=== PATIENT | male | born 1945 | race Caucasian/White ===

== ENCOUNTER 2023-12-08 09:54 | Outpatient (OUT) | payer MEDICARE, BC, SELFPAY ==
[2023-12-08 10:17] LABS: Hematocrit 40.5 % (42.0-54.0); Hemoglobin 13.6 g/dL (14.0-18.0); Mean Corpuscular HGB Conc 33.6 g/dL (29.9-35.2); Mean Corpuscular Hemoglobin 32.4 pg (25.9-34.0); Mean Corpuscular Volume 96.4 fL (80.0-94.0); Mean Platelet Volume 10.1 fL (9.5-13.5); Platelet Count 231 10^3/uL (150-450); Red Cell Distribution Width 13.2 % (11.0-15.0); White Blood Count 6.5 10^3/uL (4.0-11.0)
[2023-12-08 10:30] LABS: Estimated Average Glucose 97 mg/dL
[2023-12-08 11:14] LABS: Alanine Aminotransferase 21 U/L (16-63); Albumin Globulin Ratio 1.1; Albumin Level 3.8 g/dL (3.4-5.0); Alkaline Phosphatase 56 U/L (46-116); Anion Gap 12.4; Aspartate Amino Transferase 17 U/L (15-37); BUN Creatinine Ratio 21.5; Bilirubin Total 1.7 mg/dL (0.2-1.0); Carbon Dioxide 29.2 mmol/L (21.0-32.0); Chloride 105 mmol/L (98-107); Chol HDL Ratio 4.8; Cholesterol 206 mg/dL (<=200); Estimated GFR (African America >60 (>=60); Estimated GFR (Non-African Ame >60 (>=60); Globulin 3.4 g/dL; Glucose 90 mg/dL (74-106); HDL Cholesterol 43 mg/dL (40-60); Potassium 3.6 mmol/L (3.5-5.1); Sodium 143 mmol/L (136-145); Total Protein 7.2 g/dL (6.4-8.2); Triglycerides 252 mg/dL (<=150); VLDL CHOLESTEROL 50.4 mg/dL
[2023-12-08 11:37] LABS: Prostate Specific Antigen Scrn 2.98 ng/mL (<=4.00)
== END 2023-12-08 09:55 | disposition home or self-care (01) ==
LOC: LAB 09:59
PROVIDERS: PCP Nurse Practitioner Primary Care; Visit Provider Nurse Practitioner Primary Care
DX: Z00.00 Encounter for general adult medical examination without abnormal findings (principal); Z13.6 Encounter for screening for cardiovascular disorders
CPT/HCPCS: 36415; 80053; 80061; 83036; 85027; G0103

== ENCOUNTER 2023-12-19 09:50 | Outpatient (OUT) | payer MEDICARE, BC, SELFPAY ==
--- NOTE | 2023-12-19 | US_ITS ---
The [address] [address] Patient Name: CRONELIUS MUNSON MRN: [id number] date: 1945 Sex: M Assigned Patient Location: US Current Patient Location: Accession/Order Number: [id number] Exam Date: 12/19/2023 10:00 Report Date: 12/20/2023 08:05 At the request of: EMERSON PINTO Procedure: US right upper quadrant EXAM: US right upper quadrant HISTORY: E80.6 HYPERBILIRUBIN COMPARISON: None. TECHNIQUE: Sonographic examination of the right upper quadrant of the abdomen using grayscale, and color Doppler. FINDINGS: Normal contour and increased echotexture of the liver. Lobular simple appearing left hepatic lobe cyst, 2.6 cm. Bilobed cystic right hepatic lobe focus measuring up to 3.9 cm, most likely 2 adjacent simple cysts. No associated color flow. No discrete solid hepatic mass. No intrahepatic biliary ductal dilatation. Common bile duct within normal limits. Normal gallbladder wall thickness. No cholelithiasis. Probable gallbladder polyp measuring 6 mm with narrow stalk. No internal color flow.. Negative sonographic Murcia sign. No pericholecystic fluid. Pancreas is not visualized given bowel gas. Normal echogenicity of the right kidney, which measures 11.7 cm in length. No hydronephrosis. Simple right upper pole 1.8 cm cyst. No free fluid. Normal visualized aortic diameter(s). SUMMARY: 1. Hepatic steatosis. 2. No evidence for biliary obstruction. 3. Small gallbladder polyp. No follow-up required per SRU given benign morphologic appearance and 6 mm size. Electronically authenticated by: ROZINA BOTELLO Date: 12/20/2023 08:05
--- OUTSIDE RECORDS SUMMARY | 2023-12-19 09:52 | XMS_ITS | CCD ---
Author Name Unknown Address [address] [facility] [facility] [address] [place] [address] Organization [facility] Care Team Providers Care Veterinary Attendant Name Role Phone SHAMMO, EMERSON Primary Care Unavailable SAMSA ., KOJO Admitting Unavailable SAMSA ., KOJO Attending Unavailable SAMSA ., OKJO Admitting Unavailable SAMSA ., KOJO Attending Unavailable SHAMMO, EMERSON Primary Care Unavailable SAMSA ., KOJO Consulting Unavailable SAMSA ., KOJO Admitting Unavailable SAMSA ., KOJO Attending Unavailable SHAMMO, EMERSON Primary Care Unavailable SAMSA ., KOJO Admitting Unavailable SAMSA ., KOJO Attending Unavailable SHAMMO, EMERSON Primary Care Unavailable SAMSA ., KOJO Consulting Unavailable NEFCY, ANNA Consulting Unavailable SHAMMO, EMERSON Admitting Unavailable SHAMMO, EMERSON Attending Unavailable SHAMMO, EMERSON Primary Care Unavailable SHAMMO, EMERSON Consulting Unavailable Allergies Allergy Classification Reported Allergen(s) Allergy Type Date of Onset Reaction(s) Facility (1 source) Penicillins Drug allergy (disorder) 11-21-2022 [facility] (1 source) Sulfonamides (Antibiotic) Drug allergy (disorder) 11-21-2022 [facility] Problems Problem Classification Problem Date Documented Da te Episodic/Chronic Chronic obstructive pulmonary disease and bronchiectasis (1 source) Chronic obstructive pulmonary disease, unspecified; Translations: [COPD UNSPECIFIED] Onset: 12-16-2022 Chronic Disorders of lipid metabolism (1 source) Mixed hyperlipidemia; Translations: [MIXED HYPERLIPIDEMIA] Onset: 11-14-2022 Chronic Essential hypertension (4 sources) Essential (primary) hypertension; Translations: [ESSENTIAL PRIMARY HYPERTENSION] Onset: 11-13-2022 Chronic Heart valve disorders (1 source) Nonrheumatic aortic (valve) insufficiency; Translations: [NONRHEUMATIC AORTIC INSUFFICIENCY] Onset: 12-02-2022 Chronic Other and ill-defined heart disease (1 source) Other ill-defined heart diseases; Translations: [OTHER ILL-DEFINED HEART DISEASES] Onset: 12-02-2022 Chronic Other lower respiratory disease (4 sources) Shortness of breath; Translations: [SHORTNESS OF BREATH] Onset: 12-11-2022 Episodic Results Test Name Value Interpretation Reference Range Facil ity ECHOCARDIO M/2D COMPLETEon 0 11-24-2022 ECHOCARDIO M/2D COMPLETE Patient: CORNELIUS MUNSON V. Exam Date: 11/24/2022 : 1945 Gender:M Ordering : DR. KOJO MILLAN . 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 DESCRIPTION: COMPLETE ECHOCARDIOGRAM Real-time transthoracic echocardiography with 2D, M-mode, spectral and color flow Doppler performed. QUALITY: Technical quality was good. LEFT VENTRICLE: Normal chamber size. Normal left ventricular wall thickness. Systolic function is at the lower limits of normal. LV EF: Lower limits of normal left ventricular ejection fraction, (50%). DIASTOLIC: Grade I diastolic dysfunction. ATRIAL SEPTUM: Visually appears intact. LEFT ATRIUM: Mild dilatation. RIGHT ATRIUM: Normal chamber size. RIGHT VENTRICLE: Normal chamber size. Normal right ventricular systolic function. TRICUSPID VALVE: Normal mobility and thickness. No stenosis with trivial regurgitation. No evidence of pulmonary hypertension. RVSP 32 mmHg MITRAL VALVE: Mildly thickened with normal mobility. No evidence of mitral valve stenosis. Mild mitral annular calcification. Trivial mitral regurgitation. AORTIC VALVE: Normal trileaflet appearance. No visible sclerosis. Normal leaflet mobility. No evidence of aortic valve stenosis. Mild aortic regurgitation. AORTIC ROOT: Normal diameter and appearance. PULMONIC VALVE: Normal thickness and mobility. No stenosis. Trivial regurgitation. PERICARDIUM: No evidence of pericardial effusion. IVC: Collapses with inspirations. IVC is normal in size. PLEURA: CONCLUSION: 1. Left ventricular systolic function is at the lower limits of normal. LVEF is 50%. 2. Normal right ventricular size and systolic function. 3. Mild diastolic dysfunction. 4. Mild aortic regurgitation. 5. Normal right-sided pressures. 6. No pericardial effusion. Adult Echocardiography Procedure Report Left Ventricle LVEDD (3.7 - 5.6 cm): 4.76 cm LVESD (2.2 - 4.0 cm): 3.53 cm, 3.23 cm LVIVS thickness (0.6 - 1.2 cm): 1.15 cm LVPW thickness (0.5 - 1.0 cm): 0.92 cm e': 0.07 m/s E - e': 8.55 LVOT Max Gradient: 2.84 mm[Hg] Peak Velocity (LVOT): 0.84 m/s Mean Velocity (LVOT): 0.62 m/s LVOT Diameter 2.35 cm Left Ventricular Ejection Fraction: 50 % Left Atrium LA Volume Index (2D A2C): 83.19 ml, 83.19 ml Left Atrium Systolic Dimension: 4.49 cm Mitral Valve MV E to A Ratio: 0.66 Mitral Valve A-Wave Peak Velocity: 0.86 m/s Mitral Valve E-Wave Peak Velocity: 0.57 m/s Right Ventricle Aorta AO Root Diam: 3.78 cm Aortic Valve AoV Area (Peak Vega): 3.08 cm2, 3.08 cm2 AoV Area (VTI): 3.10 cm2, 3.10 cm2 Peak Velocity(Antegrade Flow): 1.18 m/s Peak Gradient(Antegrade Flow): 5.58 mm[Hg] Mean Velocity(Antegrade Flow): 0.81 m/s Mean Gradient(Antegrade Flow): 3.04 mm[Hg] Velocity Time Integral: 27.27 cm Tricuspid Valve Peak Velocity (Regurgitant Flow): 2.64 m/s, 2.71 m/s Peak Velocity: 0.43 m/s Pulmonic Valve Mean Gradient: 1.94 mm[Hg] Mean Velocity: 0.64 m/s Peak Velocity: 1.07 m/s, 1.04 m/s Peak Gradient: 4.36 mm[Hg], 4.61 mm[Hg] Right Atrium Right Atrium Systolic Pressure: 38.43 ml, 38.43 ml Dictated by: Jonh Pena M.D. on 11/25/2022 at 17:25 Approved by: Jonh Pena M.D. on 11/25/2022 at 17:30 Normal [facility] XR CHEST 2 Von 11-24-2022 XR CHEST 2 V EXAM: XR CHEST 2 V HISTORY: Chronic obstructive lung disease and shortness of breath. COMPARISON: 10/23/2020 TECHNIQUE: Upright PA and lateral chest x-ray FINDINGS: The heart is not enlarged and the vasculature is not distended. Slight chronic changes are seen at the left lung base. No acute infiltrate, effusion or pneumothorax is identified. The osseous structures are grossly intact. Multiple small metallic elements project over the lateral aspect of the lower chest and upper abdomen on the left. IMPRESSION: No acute infiltrate or evidence of cardiac decompensation. Mild to very mild chronic changes are seen at the left lung base. The overall appearance of the chest is unchanged. Electronically authenticated by: ANNA RUIZ Date: 2022-11-24 13:43 Normal [facility] HEMOGRAM AND PLATELon 2022 Hematocrit (Bld) [Volume fraction] 41.2 % Critically low 42.0-54.0 [facility] Comment on above: Performed By: #### H H #### [facility] [address] [address] [address] Kathryn Hernandez Hemoglobin (Bld) [Mass/Vol] 14.2 g/dL Normal 14.0-18.0 [facility] Comment on above: Performed By: #### H H #### [facility] [address] [address] [address] Kathryn Hernandez MCH (RBC) [Entitic mass] 32.6 pg Normal 25.9-34.0 [facility] Comment on above: Performed By: #### H H #### [facility] [address] [address] [address] Kathryn Hernandez MCHC (RBC) [Mass/Vol] 34.5 g/dL Normal 29.9-35.2 [facility] Comment on above: Performed By: #### H H #### [facility] [address] [address] [address] Kathryn Hernandez MCV (RBC) [Entitic vol] 94.7 fL Critically high 80.0-94.0 [facility] Comment on above: Performed By: #### H H #### [facility] [address] [address] [address] Kathryn Hernandez PLT 252 103/ul Normal 150-450 [facility] Comment on above: Performed By: #### H H #### [facility] [address] [address] [address] Kathryn Hernandez RBC 4.35 106/ul Critically low 4.70-6.10 [facility] Comment on above: Performed By: #### H H #### [facility] [address] [address] [address] Kathryn Hernandez WBC 7.3 103/ul Normal 4.0-11.0 [facility] Comment on above: Performed By: #### H H #### [facility] [address] [place] [address] Dr. Kathryn Hernandez LIPID PROFILEon 11-13-2022 CHOL-HDL RATIO NORM SEE BELOW Normal [facility] Comment on above: Result Comment: 3.3 - 4.4 LOW RISK 4.4 - 7.1 AVERAGE RISK 7.1 - 11.0 MODERATE RISK >11.0 HIGH RISK Performed By: #### C MP, LIPID #### [facility] [address] [place] [address] Dr. Kathryn Hernandez Cholesterol [Mass/Vol] 177 mg/dL Normal <=200 [facility] Comment on above: Performed By: #### C MP, LIPID #### [facility] [address] [place] [address] Dr. Kathryn Hernandez Cholesterol in HDL [Mass/Vol] 44 mg/dL Normal 40-60 [facility] Comment on above: Performed By: #### C MP, LIPID #### [facility] [address] [place] [address] Dr. Kathryn Hernandez Cholesterol in LDL [Mass/Vol] 107.4 mg/dL Normal [facility] Comment on above: Performed By: #### C MP, LIPID #### [facility] [address] [place] [address] Dr. Kathryn Hernandez Cholesterol.total/ Cholesterol in HDL [Mass ratio] 4.0 {ratio} Normal [facility] Comment on above: Performed By: #### C MP, LIPID #### [facility] [address] [place] [address] Dr. Kathryn Hernandez HDL NORMAL > or = 60 mg/dl - LO W CARDIOVASCULAR RISK <40 mg/dl - HIGH CARDIOVASCULAR RISK Normal [facility] Comment on above: Performed By: #### C MP, LIPID #### [facility] [address] [address] [address] Kathryn Hernandez LDL CALC NORMAL SEE BELOW Normal [facility] Comment on above: Result Comment: <100 mg/dl OPTIMAL 100 - 129 mg/dl NEAR OR ABOVE OPTIMAL 130 - 159 mg/dl BORDERLINE HIGH 160 - 189 mg/dl HIGH >190 mg/dl VERY HIGH Performed By: #### C MP, LIPID #### [facility] [address] [place] [address] Dr. Kathryn Hernandez Triglyceride [Mass/Vol] 128 mg/dL Normal <=150 [facility] Comment on above: Performed By: #### C MP, LIPID #### [facility] [address] [place] [address] Dr. Ktahryn Hernandez VLDL CALC 25.6 mg/dL Normal [facility] Comment on above: Performed By: #### C MP, LIPID #### [facility] [address] [place] [address] Dr. Kathryn Hernandez PROF 14(COMP METB)on 023 Albumin [Mass/Vol] 3.9 g/dL Normal 3.4-5.0 [facility] Comment on above: Performed By: #### C MP, LIPID #### [facility] [address] [place] [address] Dr. Kathryn Hernandez Albumin/Globulin [Mass ratio] 1.2 {ratio} Normal [facility] Comment on above: Performed By: #### C MP, LIPID #### [facility] [address] [place] [address] Dr. Kathryn Hernandez ALP [Catalytic activity/Vol] 55 U/L Normal 46-116 [facility] Comment on above: Performed By: #### C MP, LIPID #### [facility] [address] [place] [address] Dr. Kathryn Hernandez ALT [Catalytic activity/Vol] 30 U/L Normal 16-63 [facility] Comment on above: Performed By: #### C MP, LIPID #### [facility] [address] [address] [address] Kathryn Hernandez Anion gap [Moles/Vol] 11.8 mmol/L Normal [facility] Comment on above: Performed By: #### C MP, LIPID #### [facility] [address] [place] [address] Dr. Kathryn Hernandez AST [Catalytic activity/Vol] 22 U/L Normal 15-37 [facility] Comment on above: Performed By: #### C MP, LIPID #### [facility] [address] [place] [address] Dr. Kathryn Hernandez Bilirubin [Mass/Vol] 1.3 mg/dL Critically high 0.2-1.0 [facility] Comment on above: Performed By: #### C MP, LIPID #### [facility] [address] [place] [address] Dr. Kathryn Hernandez Calcium [Mass/Vol] 9.4 mg/dL Normal 8.5-10.1 [facility] Comment on above: Performed By: #### C MP, LIPID #### [facility] [address] [place] [address] Dr. Kathryn Hernandez Chloride [Moles/Vol] 105 mmol/L Normal 98-107 [facility] Comment on above: Performed By: #### C MP, LIPID #### [facility] [address] [place] [address] Dr. Kathryn Hernandez CO2 [Moles/Vol] 29.3 mmol/L Normal 21.0-32.0 [facility] Comment on above: Performed By: #### C MP, LIPID #### [facility] [address] [place] [address] Dr. Kathryn Hernandez Creatinine [Mass/Vol] 0.58 mg/dL Critically low 0.70-1.30 [facility] Comment on above: Performed By: #### C MP, LIPID #### [facility] [address] [place] [address] Dr. Kathryn Hernandez EGFR-AF GREEK >60 Normal >=60 [facility] Comment on above: Performed By: #### C MP, LIPID #### [facility] [address] [place] [address] Dr. Kathryn Hernandez EGFR-NON AF GREEK >60 Normal >=60 [facility] Comment on above: Performed By: #### C MP, LIPID #### [facility] [address] [place] [address] Dr. Kathryn Hernandez Globulin (S) [Mass/Vol] 3.2 g/dL Normal [facility] Comment on above: Performed By: #### C MP, LIPID #### [facility] [address] [address] [address] Kathryn Hernandez Glucose [Mass/Vol] 93 mg/dL Normal 74-106 [facility] Comment on above: Performed By: #### C MP, LIPID #### [facility] [address] [place] [address] Dr. Kathryn Hernandez Potassium [Moles/Vol] 4.1 mmol/L Normal 3.5-5.1 [facility] Comment on above: Performed By: #### C MP, LIPID #### [facility] [address] [place] [address] Dr. Kathryn Hernandez Protein [Mass/Vol] 7.1 g/dL Normal 6.4-8.2 [facility] Comment on above: Performed By: #### C MP, LIPID #### [facility] [address] [place] [address] Dr. Kathryn Hernandez Sodium [Moles/Vol] 142 mmol/L Normal 136-145 [facility] Comment on above: Performed By: #### C MP, LIPID #### [facility] [address] [place] [address] Dr. Kathryn Hernandez Urea nitrogen [Mass/Vol] 11.0 mg/dL Normal 7.0-18.0 [facility] Comment on above: Performed By: #### C MP, LIPID #### [facility] [address] [place] [address] Dr. Kathryn Hernandez Urea nitrogen/Creatinin e [Mass ratio] 19.0 mg/mg Normal [facility] Comment on above: Performed By: #### C MP, LIPID #### [facility] [address] [place], [place] [id number] Dr. Kathryn Hernandez Encounters Encounter Date Encounter Type Care Provider Facility Start: 01-01-2023 ambulatory EMERSON PINTO Facility:[facility] Start: 12-11-2022 End: 12-12-2022 ambulatory KOJO MILLAN . Facility:[facility] Start: 11-24-2022 End: 11-25-2022 ambulatory KOJO MILLAN . Facility:[facility] Start: 11-21-2022 End: 11-22-2022 ambulatory KOJO MILLAN . Facility:[facility] Start: 11-13-2022 End: 11-14-2022 ambulatory EMERSON PINTO Facility:[facility] Payers Date Payer Category Payer Medicare [id number] 1958 Unknown [id number] 1945 Unknown [id number] 2.16.84 [id number] 1945 Unknown [id number] 2.16.84 [id number] 1945 Unknown [id number] 2.16.84 [id number] 1945 Unknown [id number] 2.16.84 [id number] 1945 Unknown [id number] 2.16.84 [id number] Summary Purpose Family History No Family History Records Found Advance Directives No Advanced Directives Records Found Additional Source Comments (unrecognized sect ion and content) No Status Records Found INFORMATION SOURCE (unrecogn ized section and content) DATE CREATED AUTHOR 01/06/2023 [facility] FOR RECORDS PERTAINING TO PATIENTS WHO ARE OR HAVE BEEN ENROLLED IN A CHEMICAL DEPENDENCY/SUBSTANCEABUSE PROGRAM, SOME INFORMATION MAY BE OMITTED. This clinical summary was aggregated from multiple sources. Caution should be exercised in using it in the provision of clinical care. This summary normalizes information from multiple sources, and as a consequence, information in this document may materially change the coding, format and clinical context of patient data. In addition, data may be omitted in some cases. CLINICAL DECISIONS SHOULD BE BASED ON THE PRIMARY CLINICAL RECORDS. [facility], [facility]. provides no warranty or guarantee of the accuracy or completeness of information in this document.
== END 2023-12-19 09:51 | disposition home or self-care (01) ==
LOC: US 09:50
PROVIDERS: PCP Nurse Practitioner Primary Care; Visit Provider Nurse Practitioner Primary Care
DX: E80.6 Other disorders of bilirubin metabolism (principal)
CPT/HCPCS: 76705

== ENCOUNTER 2024-03-28 09:36 | Outpatient (OUT) | payer MEDICARE, SELFPAY ==
--- OUTSIDE RECORDS SUMMARY | 2024-03-28 10:02 | XMS_ITS | CCD ---
Author Organization [facility] Care Team Providers Care Boat Deckhand Name Role Phone SHAMMO, EMERSON Primary Care Unavailable SAMSA ., KOJO Admitting Unavailable SAMSA ., KOJO Attending Unavailable SAMSA ., KOJO Admitting Unavailable SAMSA [...] source) Penicillins Drug allergy (disorder) 11-21-2022 [facility] (1 source) Sulfonamides (Antibiotic) Drug allergy (disorder) 11-21-2022 [facility] Problems Problem Classification Problem Date [...] : DR. KOJO MILLAN . 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 on 11/25/2022 at 17:30 Normal [facility] XR CHEST 2 Von 11-24-2022 XR CHEST [...] ANNA RUIZ Date: 2022-11-24 13:43 Normal [facility] HEMOGRAM AND PLATELon 2022 Hematocrit (Bld) [Volume fraction] 41.2 % Critically low 42.0-54.0 [facility] Comment on above: Performed By: #### H H #### [facility] [address] [place] [address] Dr. Kathryn Hernandez Hemoglobin (Bld) [Mass/Vol] 14.2 g/dL Normal 14.0-18.0 [facility] Comment on above: Performed By: #### H H #### [facility] [address] [place] [address] Dr. Kathryn Hernandez MCH (RBC) [Entitic mass] 32.6 pg Normal 25.9-34.0 [facility] Comment on above: Performed By: #### H H #### [facility] [address] [place] [address] Dr. Kathryn Hernandez MCHC (RBC) [Mass/Vol] 34.5 g/dL Normal 29.9-35.2 [facility] Comment on above: Performed By: #### H H #### [facility] [address] [place] [address] Dr. Kathryn Hernandez MCV (RBC) [Entitic vol] 94.7 fL Critically high 80.0-94.0 [facility] Comment on above: Performed By: #### H H #### [facility] [address] [place] [address] Dr. Kathryn Hernandez PLT 252 103/ul Normal 150-450 [facility] Comment on above: Performed By: #### H H #### [facility] [address] [place] [address] Dr. Kathryn Hernandez RBC 4.35 106/ul Critically low 4.70-6.10 [facility] Comment on above: Performed By: #### H H #### [facility] [address] [place] [address] Dr. Kathryn Hernandez WBC 7.3 103/ul Normal 4.0-11.0 [facility] Comment on above: Performed By: #### H H #### [facility] [address] [place] [address] Dr. Kathryn Hernandez LIPID PROFILEon 11-13-2022 CHOL-HDL RATIO NORM SEE BELOW Normal [facility] Comment on above: Result Comment: 3.3 - 4.4 LOW RISK 4.4 - 7.1 AVERAGE RISK 7.1 - 11.0 MODERATE RISK >11.0 HIGH RISK Performed By: #### C MP, LIPID #### [facility] [address] [place] [address] Dr. Kathryn Hernandez Cholesterol [Mass/Vol] 177 mg/dL Normal <=200 [facility] Comment on above: Performed By: #### C MP, LIPID #### [facility] [address] [place] [address] Dr. Kathryn Hernandez Cholesterol in HDL [Mass/Vol] 44 mg/dL Normal 40-60 [facility] Comment on above: Performed By: #### C MP, LIPID #### [facility] [address] [place] [address] Dr. Kathryn Hernandez Cholesterol in LDL [Mass/Vol] 107.4 mg/dL Normal [facility] Comment on above: Performed By: #### C MP, LIPID #### [facility] [address] [place] [address] Dr. Kathryn Hernandez Cholesterol.total/ Cholesterol in HDL [Mass ratio] 4.0 {ratio} Normal [facility] Comment on above: Performed By: #### C MP, LIPID #### [facility] [address] [place] [address] Dr. Kathryn Hernandez HDL NORMAL > or = 60 mg/dl - LO W CARDIOVASCULAR RISK <40 mg/dl - HIGH CARDIOVASCULAR RISK Normal [facility] Comment on above: Performed By: #### C MP, LIPID #### [facility] [address] [place] [address] Dr. Kathryn Hernandez LDL CALC NORMAL SEE BELOW Normal [facility] Comment on above: Result Comment: <100 mg/dl OPTIMAL 100 - 129 mg/dl NEAR OR ABOVE OPTIMAL 130 - 159 mg/dl BORDERLINE HIGH 160 - 189 mg/dl HIGH >190 mg/dl VERY HIGH Performed By: #### C MP, LIPID #### [facility] [address] [place] [address] Dr. Kathryn Hernandez Triglyceride [Mass/Vol] 128 mg/dL Normal <=150 [facility] Comment on above: Performed By: #### C MP, LIPID #### [facility] [address] [place] [address] Dr. Kathryn Hernandez VLDL CALC 25.6 mg/dL Normal [facility] Comment on above: Performed By: #### C MP, LIPID #### [facility] [address] [place] [address] Dr. Kathryn Hernandez PROF 14(COMP METB)on 023 Albumin [Mass/Vol] 3.9 g/dL Normal 3.4-5.0 [facility] Comment on above: Performed By: #### C MP, LIPID #### [facility] [address] [place] [address] Dr. Kathryn Hernandez Albumin/Globulin [Mass ratio] 1.2 {ratio} Normal [facility] Comment on above: Performed By: #### C MP, LIPID #### [facility] [address] [place] [address] Dr. Kathryn Hernandez ALP [Catalytic activity/Vol] 55 U/L Normal 46-116 [facility] Comment on above: Performed By: #### C MP, LIPID #### [facility] [address] [place] [address] Dr. Kathryn Hernandez ALT [Catalytic activity/Vol] 30 U/L Normal 16-63 [facility] Comment on above: Performed By: #### C MP, LIPID #### [facility] [address] [place] [address] Dr. Kathryn Hernandez Anion gap [Moles/Vol] 11.8 mmol/L Normal [facility] Comment on above: Performed By: #### C MP, LIPID #### [facility] [address] [place] [address] Dr. Kathryn Hernandez AST [Catalytic activity/Vol] 22 U/L Normal 15-37 [facility] Comment on above: Performed By: #### C MP, LIPID #### [facility] [address] [place] [address] Dr. Kathryn Hernandez Bilirubin [Mass/Vol] 1.3 mg/dL Critically high 0.2-1.0 [facility] Comment on above: Performed By: #### C MP, LIPID #### [facility] [address] [place] [address] Dr. Kathryn Hernandez Calcium [Mass/Vol] 9.4 mg/dL Normal 8.5-10.1 [facility] Comment on above: Performed By: #### C MP, LIPID #### [facility] [address] [place] [address] Dr. Kathryn Hernandez Chloride [Moles/Vol] 105 mmol/L Normal 98-107 [facility] Comment on above: Performed By: #### C MP, LIPID #### [facility] [address] [place] [address] Dr. Kathryn Hernandez CO2 [Moles/Vol] 29.3 mmol/L Normal 21.0-32.0 [facility] Comment on above: Performed By: #### C MP, LIPID #### [facility] [address] [place] [address] Dr. Kathryn Hernandez Creatinine [Mass/Vol] 0.58 mg/dL Critically low 0.70-1.30 [facility] Comment on above: Performed By: #### C MP, LIPID #### [facility] [address] [place] [address] Dr. Kathryn Hernandez EGFR-AF SALVADOREAN >60 Normal >=60 [facility] Comment on above: Performed By: #### C MP, LIPID #### [facility] [address] [place] [address] Dr. Kathryn Hernandez EGFR-NON AF SALVADOREAN >60 Normal >=60 [facility] Comment on above: Performed By: #### C MP, LIPID #### [facility] [address] [place] [address] Dr. Kathryn Hernandez Globulin (S) [Mass/Vol] 3.2 g/dL Normal [facility] Comment on above: Performed By: #### C MP, LIPID #### [facility] [address] [address] [address] Kathryn Hernandez Glucose [Mass/Vol] 93 mg/dL Normal 74-106 [facility] Comment on above: Performed By: #### C MP, LIPID #### [facility] [address] [place] [address] Dr. Kathryn Hernandez Potassium [Moles/Vol] 4.1 mmol/L Normal 3.5-5.1 [facility] Comment on above: Performed By: #### C MP, LIPID #### [facility] [address] [place] [address] Dr. Kathryn Hernandez Protein [Mass/Vol] 7.1 g/dL Normal 6.4-8.2 [facility] Comment on above: Performed By: #### C MP, LIPID #### [facility] [address] [place] [address] Dr. Kathryn Hernandez Sodium [Moles/Vol] 142 mmol/L Normal 136-145 [facility] Comment on above: Performed By: #### C MP, LIPID #### [facility] [address] [place] [address] Dr. Kathryn Hernandez Urea nitrogen [Mass/Vol] 11.0 mg/dL Normal 7.0-18.0 [facility] Comment on above: Performed By: #### C MP, LIPID #### [facility] [address] [place] [address] Dr. Kathryn Hernandez Urea nitrogen/Creatinin e [Mass ratio] 19.0 mg/mg Normal [facility] Comment on above: Performed By: #### C MP, LIPID #### [facility] [address] [place] [address] Dr. Kathryn Hernandez Encounters Encounter Date Encounter Type Care Provider Facility Start: 01-01-2023 ambulatory EMERSON PINTO Facility:[facility] 1 Start: 12-11-2022 End: 12-12-2022 ambulatory KOJO MILLAN . Facility:[facility] Start: 11-24-2022 End: 11-25-2022 ambulatory KOJO MILLAN . Facility:[facility] Start: 11-21-2022 End: 11-22-2022 ambulatory KOJO MILLAN . Facility:[facility] Start: 11-13-2022 End: 11-14-2022 ambulatory EMERSON PINTO Facility:[facility] Payers Date Payer Category Payer Medicare [id number] 1958 Unknown [id number] 1945 Unknown [id number] 2.16.84 [id number] 1945 Unknown [id number] 2.16.84 [id number] 1945 Unknown [id number] 2.16.84 [id number] 1945 Unknown [id number] 2.16.84 [id number] 1945 Unknown [id number] 2.16.84 [id number] Summary Purpose Family History No Family History Records Found Advance Directives No Advanced Directives Records Found Additional Source Comments (unrecognized sect ion and content) No Status Records Found INFORMATION SOURCE (unrecogn ized section and content) DATE CREATED AUTHOR 01/06/2023 [facility] FOR RECORDS PERTAINING TO PATIENTS WHO [...] BE BASED ON THE PRIMARY CLINICAL RECORDS. [facility] [employer] [facility]. provides no warranty or guarantee of the accuracy or completeness of information in this document.
[2024-03-28 11:24] LABS: Alanine Aminotransferase 25 U/L (16-63); Albumin Globulin Ratio 1.2; Albumin Level 3.9 g/dL (3.4-5.0); Alkaline Phosphatase 59 U/L (46-116); Aspartate Amino Transferase 20 U/L (15-37); Bilirubin Direct 0.3 mg/dL (0.0-0.2); Bilirubin Total 1.8 mg/dL (0.2-1.0); Globulin 3.3 g/dL; Total Protein 7.2 g/dL (6.4-8.2)
== END 2024-03-28 09:37 | disposition home or self-care (01) ==
PROVIDERS: PCP Nurse Practitioner; Visit Provider Nurse Practitioner
DX: K76.0 Fatty (change of) liver, not elsewhere classified (principal)
CPT/HCPCS: 36415; 80076

== ENCOUNTER 2025-05-05 09:13 | Outpatient (OUT) | payer MEDICARE, BC, SELFPAY ==
--- OUTSIDE RECORDS SUMMARY | 2024-02-06 17:00 | XMS_ITS ---
Author Organization [facility] Address [address] [address] Care Team Providers Care Fleet Dispatch Manager Name Role Phone GUILLAUME ACEVEDO Primary Care Provider NANCY PAREDES Unavailable [phone] Migration, Provider Unavailable Unavailable Allergies Allergen (clinical drug ingredient) Drug/Non Drug Allergy documented on EMR Reaction Allergy Type Onset Date Status Substance with sulfonamide structure and antibacterial mechanism of action (substance) Sulfa Antibiotics Unknown Drug Allergy Active Penicillin Unknown Drug Allergy Active REASON FOR VISIT [facility] To [facility] Conversion Encounter Medications Medication SIG (Take, Route, Frequency, Duration) Notes Start Date End Date Status Atorvastatin Calcium 80 MG 1 tab(s) orally once a day Not-Taking Azithromycin 250 MG 2 tablets on the first day, then 1 tablet daily for 4 days orally on day one, then 1 tab daily thereafter until completed for 5 days 11/09/2018 Not-Taking Allergy Relief (Loratadine) 10 MG 1 tab(s) orally once a day for 30 days 11/09/2018 Not-Taking Clotrimazole-Betame thasone 1-0.05 % 1 burton applied topically 2 times a day for 14 Not-Taking Ketorolac Tromethamine 0.5 % 1 gtt in left eye 2 times a day Active Metoprolol Tartrate 25 MG 1/2 tab(s) orally 2 times a day Not-Taking Melatonin 3 MG 1 tab(s) orally once (at bedtime) Not-Taking OLOPATADINE NASAL 665 MCG/INH 2 SPRAY(S) INTRANASALLY 2 TIMES A DAY *Please review for potential replacement for e-prescription and drug interaction check* Not-Taking Gabapentin 300 MG 1 cap(s) orally 2 times a day Not-Taking Acetaminophen 325 MG 2 tab(s) orally every 4 hours Not-Taking Sertraline HCl 100 MG 1/2 tab(s) orally once a day Not-Taking Diclofenac Sodium 1 % as directed applied topically 4 times a day PRN KNEE PAIN for 30 days Active Tamsulosin HCl 0.4 MG 1 cap(s) orally once a day for 30 day(s) 06/05/2022 Active Nystatin 316567 UNIT/GM 1 burton applied topically 2 times a day for 7 days 06/05/2022 Active traZODone HCl 50 MG 1 tab(s) orally once a day at bedtime Not-Taking OSTEO BI-FLEX TRIPLE STRENGTH *Please review for potential replacement for e-prescription and drug interaction check* Active Tylenol 8 Hour Arthritis Pain 650 MG 2 tab(s) orally every 8 hours for 3 day(s) Active prednisoLONE Acetate 1 % 1 gtt in each affected eye 4 times a day for 2 day(s) Not-Taking Trelegy Ellipta 100-62.5-25 MCG/ACT 1 Inhalation once dailiy for 30 days Active Albuterol Sulfate HFA 108 (90 Base) MCG/ACT 2 puff(s) inhaled 4 times a day Active Esomeprazole Magnesium 20 MG 1 cap(s) orally once a day for 30 day(s) Active PreserVision AREDS 2 - 1 tab(s) chewed 2 times a day Active Multi Vitamin - 1 tab(s) orally once a day for 30 day(s) Active Glucosamine Chondroitin Triple - 1 tab PO BID for 30 Active Encounters Encounter Location Date Provider Diagnosis [address] [place] [address] 02/06/2024 Provider Migration Macular edema H35.81 Assessments Encounter Date Diagnosis (ICD Code) Assessment Notes Treatment Notes Treatment Clinical Notes Section Notes 02/06/2024 Macular edema (ICD-10 - H35.81) Plan Of Treatment Medication Medication Name Sig Start Date Stop Date Notes Ketorolac Tromethamine 0.5 % 1 gtt in le ft eye 2 times a day Progress Notes * Felipe JUNG VDOB: [birth year] (79 yo M)Acc No.[id number]:02/06/2024 Patient: Felipe LEIVA V Provider: :1945 A ge:78 Y S ex:Male Date:02/06/2024 [address] [facility] Pcp:GUILLAUME ACEVEDO Subjective: * Chief Complaints: * 1 . [facility] To Medispan Conversion Encounter. * Medical History: * Medications: T aking Multi Vitamin - Tablet 1 tab(s) orally once a day , Taking Glucosamine Chondroitin Triple - Tablet 1 tab PO BID , Taking Esomeprazole Magnesium 20 MG Capsule Delayed Release 1 cap(s) orally once a day , Taking PreserVision AREDS 2 - Tablet Chewable 1 tab(s) chewed 2 times a day , Taking OSTEO BI-FLEX TRIPLE STRENGTH , Notes to Pharmacist: *Please review for potential replacement for e- prescription and drug interaction check*, Taking Tylenol 8 Hour Arthritis Pain 650 MG Tablet Extended Release 2 tab(s) orally every 8 hours , Taking Trelegy Ellipta 100-62.5-25 MCG/ACT Aerosol Powder Breath Activated 1 Inhalation once dailiy , Taking Albuterol Sulfate HFA 108 (90 Base) MCG/ACT Aerosol Solution 2 puff(s) inhaled 4 times a day , Taking Diclofenac Sodium 1 % Gel as directed applied topically 4 times a day PRN KNEE PAIN , Taking Tamsulosin HCl 0.4 MG Capsule 1 cap(s) orally once a day , Taking Nystatin 427078 UNIT/GM Cream 1 burton applied topically 2 times a day , Not- Taking/PRN prednisoLONE Acetate 1 % Suspension 1 gtt in each affected eye 4 times a day , Not-Taking/PRN traZODone HCl 50 MG Tablet 1 tab(s) orally once a day at bedtime , Not-Taking/PRN Sertraline HCl 100 MG Tablet 1/2 tab(s) orally once a day , Not-Taking/PRN Metoprolol Tartrate 25 MG Tablet 1/2 tab(s) orally 2 times a day , Not-Taking/PRN Melatonin 3 MG Tablet 1 tab(s) orally once (at bedtime) , Not-Taking/PRN OLOPATADINE NASAL 665 MCG/INH SPRAY 2 SPRAY(S) INTRANASALLY 2 TIMES A DAY , Notes to Pharmacist: *Please review for potential replacement for e-prescription and drug interaction check*, Not-Taking/PRN Gabapentin 300 MG Capsule 1 cap(s) orally 2 times a day , Not-Taking/PRN Acetaminophen 325 MG Tablet 2 tab(s) orally every 4 hours , Not-Taking/PRN Atorvastatin Calcium 80 MG Tablet 1 tab(s) orally once a day , Not-Taking/PRN Azithromycin 250 MG Tablet 2 tablets on the first day, then 1 tablet daily for 4 days orally on day one, then 1 tab daily thereafter until completed , Not-Taking/PRN Allergy Relief (Loratadine) 10 MG Tablet 1 tab(s) orally once a day , Not-Taking/PRN Clotrimazole-Betamethasone 1-0.05 % Cream 1 burton applied topically 2 times a day * Allergies: P enicillin, Sulfa Antibiotics. Objective: * Vitals: Assessment: * Assessment: 1. M acular edema - H35.81 (Primary) Plan: * Treatment: * Images: Billing Information: * Visit Code: * Procedure Codes: * Electronic signature of Prov ider Migration on 05/05/2025 at 09:20 AM EDT Sign off status: Pending * Provider: Date: 0 02/06/2024 Generated for Kaci marshall/Preethi/Mauriitting on: 05/05/2025 09:20 AM EDT
--- OUTSIDE RECORDS SUMMARY | 2024-04-28 06:30 | XMS_ITS ---
Author Organization [facility] Address [address] [place], [place] [address] Care Team Providers Care Recreation Technician Name Role Phone Raheem Euceda Primary Care Provider [phone] Nichol Hedrick [phone] REASON FOR VISIT fu liver Social History Sex Assigned At : Social History Observation Description Sex Assigned At Male Encounters Encounter Location Date Provider Diagnosis [place] [address] [facility] [place] [address] 04/28/2024 Nichol Mann Plan Of Treatment No Information Progress Notes * Felipe JUNGDOB: [birth year] (79 yo M)Acc No.[id number]:04/28/2024 Medical Note Patient: Felipe LEIVA Provider: Rafi Mann :1945 A ge:78 Y S ex:Male Date:04/28/2024 Address[facility] [place] [place] [address] Pcp:Raheem Euceda Subjective: * Chief Complaints: * 1 . Fu liver. * Medical History: Objective: * Vitals: Assessment: Plan: * Treatment: * Billing Information: * Visit Code: * Procedure Codes: * Electronic signature of DANIEL Chambers on 05/05/2025 at 09:20 AM EDT Sign off status: Pending * Provider: Rafi Mann Date: 0 04/28/2024 Generated for Floriani ng/Preethi/eTransmitting on: 05/05/2025 09:20 AM EDT
--- OUTSIDE RECORDS SUMMARY | 2024-06-23 09:00 | XMS_ITS ---
Author Organization [facility] in [place] Address [address] [place] [address] Care Team Providers Care Shrub Grower Name Role Phone Aliza Piña CNP Primary Care Provider U Aissatou Joneshan Unavailable [phone] REASON FOR VISIT 2 YEAR-COPD Encounters Encounter Location Date Provider Diagnosis Pulmonary [facility] [place] [address] [place] [address] 06/23/2024 Reji Bryson Plan Of Treatment Next Appt Details Provider Name:Reji Bryson, 06/28/2025 02:00:00 PM, [address] [place], [address], Progress Notes * Felipe JUNG VDOB: [birth year] (79 yo M)Acc No.[id number]:06/23/2024 UNLOCKED PROGRESS NOTE Follow Up Patient: Yuni Felipe HILTON V Provider: Agus Bryson DO :1945 A ge:79 Y S ex:Male Date:06/23/2024 Address:[address], [place], [place] Pcp:Aliza Piña CNP Subjective: * Chief Complaints: * 1 . 2 YEAR-COPD. * Medical History: Objective: * Vitals: Assessment: Plan: * Treatment: * * Electronic signature of Zaida Bryson DO on 05/05/2025 at 09:19 AM EDT Sign off status: Pending Visit Status: R /S (Rescheduled) * Provider: Agus Bryson, Date: 0 06/23/2024 Generated for Kaci marshall/Preethi/Tia on: 0 05/05/2025 09:19 AM EDT
--- OUTSIDE RECORDS SUMMARY | 2024-06-29 09:18 | XMS_ITS ---
Author Organization [facility] in [place] Address [address] [place] [address] Care Team Providers Care Shoe Puller Name Role Phone Aliza Piña CNP Primary Care Provider U Reji Jones Unavailable [phone] REASON FOR VISIT appointment Encounters Encounter Location Date Provider Diagnosis Pulmonary Medicine [place] [address] [place] [address] 06/29/2024 Rejilina Bryson Plan Of Treatment Next Appt Details Provider Name:Reji Bryson, 06/28/2025 02:00:00 PM, [address] [place], [address], Progress Notes * Felipe JUNG VDOB: [birth year] (79 yo M)Acc No.[id number]:06/29/2024 Patient: Yuni Felipe HILTON V :1945 A ge:79 Y S ex:Male Address:[address], [place], [address] * true * Date: Generated for Printi ng/Faxing/eTransmitting on: 0 05/05/2025 09:19 AM EDT
--- OUTSIDE RECORDS SUMMARY | 2024-06-29 11:00 | XMS_ITS ---
Author Organization [facility] in [place] Address [address] [place] [address] Care Team Providers Care Wildlife Technician Name Role Phone Aliza Piña CNP Primary Care Provider U Reji Jones Unavailable [phone] Allergies Allergen (clinical drug ingredient) Drug/Non Drug Allergy documented on EMR Reaction Allergy Type Onset Date Status Substance with sulfonamide structure and antibacterial mechanism of action (substance) Sulfa Antibiotics hives Drug Allergy Active Penicillin rash Drug Allergy Active REASON FOR VISIT 1 YEAR-COPD Medications Medication SIG (Take, Route, Frequency, Duration) Notes Start Date End Date Status Tylenol 8 Hour 650 MG 2 tablets as neede d Orally every 8 hrs Active prednisoLONE Acetate 1 % INSTILL 1 DROP INTO LEFT EYE TWICE A DAY DIRECTED Ophthalmic for 50 Days Active Albuterol Sulfate HFA 108 (90 Base) MCG/ACT 2 puffs as needed for SOB Inhalation every 4 hrs for 30 days Active Trelegy Ellipta 100-62.5-25 MCG/ACT 1 puff Inhalation Once a day for 90 days Rinse After Use Active Omeprazole 40 MG TAKE 1 CAPSULE BY MOUTH EVERY DAY 30 MINUTES BEFORE MORNING MEAL FOR 90 DAYS Oral for 90 Days Active Ketorolac Tromethamine 0.5 % 1 drop into affected eye as needed Ophthalmic Every 12 hours Active Dorzolamide HCl-Timolol Mal 22.3-6.8 MG/ML 1 drop into affected eye Ophthalmic Twice a day Active Social History Tobacco Use: Social History Observation Description Date Details (start date - stop date) Former Smoker NA - NA Tobacco Use/Smoking Question Answer Notes Patient is a former smoker How long has it been since you last smoked? > 10 years Tobacco Control (Standard) Question Answer Notes Tobacco use: Former smoker How long has it been since y ou last smoked? Greater than 10 years Additional Findings: Tobacco non-user Ex -moderate cigarette smoker (10-19/day) Vital Signs Temperature 96.7 degrees Fahrenheit 06/29/20 24 Blood pressure systolic 155 mm Hg 06/29/20 24 Blood pressure diastolic 75 mm Hg 024 Heart Rate 68 /min 06/29/2024 Respiratory Rate 20 /min 06/29/2024 Height 74 in 06/29/2024 Weight 204.0 lbs 06/29/2024 BMI 26.19 kg/m2 06/29/2024 Oximetry 95 % 06/29/2024 Encounters Encounter Location Date Provider Diagnosis Pulmonary Medicine [address] [address] 06/29/2024 Reji Bryson COPD (chronic obstructive pulmonary disease) J44.9 ; History of tobacco abuse Z87.891 and shelter (current) use of inhaled steroids Z79.51 Assessments Encounter Date Diagnosis (ICD Code) Assessment Notes Treatment Notes Treatment Clinical Notes Section Notes 06/29/2024 COPD (chronic obstructive pulmonary disease) (ICD-10 - J44.9) He reports no further dyspnea over the past 1+ years. He is happy with his breathing and feels that Trelegy is maintaining his good pulmonary status. Refilled Trelegy and albuterol to have on hand if needed. F/U 1 year or sooner PRN. 06/29/2024 History of tobacco abuse (ICD-10 - Z87.891) This patient does not meet current LDCT criteria (e.g. age, time from cessation, # pack-years). 06/29/2024 director long term care (current) use of inhaled steroids (ICD-10 - Z79.51) Patient was counseled to rinse & gargle with water after inhaled corticosteroid use. 06/29/2024 Other Plan Of Treatment Medication Medication Name Sig Start Date Stop Date Notes Albuterol Sulfate HFA 108 (90 Base) MCG/ACT 2 puffs as needed for SOB Inhalation every 4 hrs for 30 days Trelegy Ellipta 100-62.5-25 MCG/ACT 1 puff Inhalation Once a day for 90 days Rinse After Use Treatment Notes Assessment Notes COPD (chronic obstructive pu lmonary disease) He reports no further dyspnea over the past 1+ years. He is happy with his breathing and feels that Trelegy is maintaining his good pulmonary status. Refilled Trelegy and albuterol to have on hand if needed. F/U 1 year or sooner PRN. History of tobacco abuse This patient does not meet current LDCT criteria (e.g. age, time from cessation, # pack-years). director long term care (current) use of i nhaled steroids Patient was counseled to rinse & gargle with water after inhaled corticosteroid use. Next Appt Details Follow Up: 1 Year, Reason: C OPD Provider Name:Reji Adelaide, 06/28/2025 02:00:00 PM, [address] [place], [address], Progress Notes * Felipe JUNG VDOB: [birth year] (79 yo M)Acc No.[id number]:06/29/2024 Follow Up Patient: Felipe LEIVA V Provider: Agus Bryson DO :1945 A ge:79 Y S ex:Male Date:06/29/2024 Address:[address] [place] [address] [facility] Pcp:Aliza Piña CNP Check In:02:57 PM ESTCheck O ut:03:28 PM EST Subjective: * Chief Complaints: * 1 YEAR-COPD * HPI: G eneral: Patient states his breathing has been doing very well over the past year. He has not had any exacerbations of his COPD and reports rare albuterol use. He continues to use Trelegy daily with voiced benefit. He rinses after use. He denies any adverse effects. He has no new pulmonary complaints today - he is very happy with his breathing. MA Intake Comments:. Patient presents for a follow-up for COPD. Patient states his breathing is unchanged since his last visit. Patient is using Trelegy daily with benefit. Patient reports rare albuterol use. Patient denies any hospitalizations or ER visits since his last visit. * ROS: G eneral/Constitutional: Fever or sweats d enies. C hange of appetite d enies. C hills d enies. W eight Change d enies. H EENT: Dry mouth d enies. S ore throat d enies. O ral Ulcers d enies. P ost Nasal Drip D enies. C ongestion D enies. H oarseness?Denies. C ardiovascular: Tachycardia d enies. C hest pain d enies. P alpitations d enies. R espiratory: Chest tightness d enies. P leurisy D enies. D yspnea d enies. C ough d enies. H emoptysis d enies. W heezing d enies.? G astrointestinal: Acid Reflux/GERD/Heartburn d enies. D ysphagia d enies. M usculoskeletal: Arthralgias/joint pain D enies. S kin: Easy bruising d enies. R moustapha d enies. ? N eurologic: Seizures d enies. T remor d enies. H ematology: Abnormal Bleeding d enies. P sychiatric: Anxiety d enies. 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 M other: Lung cancer, diagnosed with Other malignant neoplasm of unspecified site. B rother(s): Parkinsons, renal failure, diagnosed with Other malignant neoplasm of unspecified site. S ister(s): diagnosed with Other malignant neoplasm of unspecified site. * Social History: T obacco Use: T obacco Control (Standard) T obacco use: F ormer smoker H ow long has it been since you last smoked??Greater than 10 years A dditional Findings: Tobacco non-user E x-moderate cigarette smoker (10-19/day) Electronic Cigarette use C urrent user N o Tobacco Use/Smoking P atient is a f ormer smoker H ow long has it been since you last smoked??> 10 years M iscellaneous: C affeine: 2-3 cups per day. 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 D rugs/Alcohol: D rugs H ave you used drugs other than those for medical reasons in the past 12 months? N o D oes the Patient have a History of Drug Abuse in the Past? N o Caffeine I ntake: 2 -3 cups per day Coffee Do you drink alcohol?: No. Do you smoke marijuana?: Denies. * Medications: T akingAlbuterol Sulfate HFA 108 (90 Base) MCG/ACT Aerosol Solution 2 puffs as needed for SOB Inhalation Q4H Dorzolamide HCl-Timolol Mal 22.3-6.8 MG/ML Solution 1 drop into affected eye Ophthalmic Twice a day Ketorolac Tromethamine 0.5 % Solution 1 drop into affected eye as needed Ophthalmic Every 12 hours Omeprazole 40 MG Capsule Delayed Release TAKE 1 CAPSULE BY MOUTH EVERY DAY 30 MINUTES BEFORE MORNING MEAL FOR 90 DAYS Oral prednisoLONE Acetate 1 % Suspension INSTILL 1 DROP INTO LEFT EYE TWICE A DAY DIRECTED Ophthalmic Trelegy Ellipta(Lnmsggvjmzr-Jxzicotza-Wonzaj) 100-62.5-25 MCG/ACT Aerosol Powder Breath Activated 1 puff Inhalation QD , Notes to Pharmacist: Rinse After UseTylenol 8 Hour(Acetaminophen ER) 650 MG Tablet Extended Release 2 tablets as needed Orally every 8 hrs Taking Albuterol Sulfate HFA 108 (90 Base) MCG/ACT Aerosol Solution 2 puffs as needed for SOB Inhalation Q4H Taking Dorzolamide HCl-Timolol Mal 22.3-6.8 MG/ML Solution 1 drop into affected eye Ophthalmic Twice a day Taking Ketorolac Tromethamine 0.5 % Solution 1 drop into affected eye as needed Ophthalmic Every 12 hours Taking Omeprazole 40 MG Capsule Delayed Release TAKE 1 CAPSULE BY MOUTH EVERY DAY 30 MINUTES BEFORE MORNING MEAL FOR 90 DAYS Oral Taking prednisoLONE Acetate 1 % Suspension INSTILL 1 DROP INTO LEFT EYE TWICE A DAY DIRECTED Ophthalmic Taking Trelegy Ellipta(Qxgmundvnvw-Sahewvnas-Qvgfod) 100-62.5-25 MCG/ACT Aerosol Powder Breath Activated 1 puff Inhalation QD , Notes to Pharmacist: Rinse After UseTaking Tylenol 8 Hour(Acetaminophen ER) 650 MG Tablet Extended Release 2 tablets as needed Orally every 8 hrs DiscontinuedArexvy(RSVPreF3 Vac Recomb Adjuvanted) 120 MCG/0.5ML Suspension Reconstituted as directed Intramuscular once Prevnar 20(Pneumococcal 20-Kelli Conj Vacc) 0.5 ML Suspension Prefilled Syringe as directed Intramuscular 1 Medication List reviewed and reconciled with the patientDiscontinued Arexvy(RSVPreF3 Vac Recomb Adjuvanted) 120 MCG/0.5ML Suspension Reconstituted as directed Intramuscular once Discontinued Prevnar 20(Pneumococcal 20-Kelli Conj Vacc) 0.5 ML Suspension Prefilled Syringe as directed Intramuscular 1 Medication List reviewed and reconciled with the patient * Allergies: P enicillin: rash - Allergy - Criticality LowSulfa Antibiotics: hives - Allergy - Criticality [place][Allergies Verified] Objective: * Vitals: W t:204.0lbs, Ht: 74 in, BP:sittin/75mm Hg, Temp:Forehead:96.7F, HR:68/min, RR:20/min, BMI:26.19Index, Oxygen sat %:Room Air:95%, Ht-cm: 187.96 cm, Wt-k.53 kg. * Examination: E xam: GENERAL APPEARANCE: A ppears stated age. Skin N ormal. Mouth P ink and moist. No candidiasis. Oropharynx M allampati Class I. Trachea M idline. Chest N ormal. Respiratory Normal M ovements, E ffort N ormal. Auscultation D iminished but clear breath sounds. Cardiac R egular rate and rhythm. Gastrointestinal N ormal. Vascular N o edema. Musculoskeletal N ormal posture. Using a cane to ambulate. Neurological F ocal, intact. Psychiatric A lert and oriented x3. Mentation/Cognition N ormal. Assessment: * Assessment: 1. C OPD (chronic obstructive pulmonary disease) - J44.9 (Primary) 2 . H istory of tobacco abuse - Z87.891 3 . L reina term (current) use of inhaled steroids - Z79.51 Plan: * Treatment: 2. H istory of tobacco abuse Notes: This patient does not meet current LDCT criteria (e.g. age, time from cessation, # pack-years). ? 3. L reina term (current) use of inhaled steroids Notes: Patient was counseled to rinse & gargle with water after inhaled corticosteroid use. * Procedure Codes: * Preventive Medicine: COVID Vaccination: H as patient had COVID Vaccination? COVID Vaccination Y es 12/11/2020; 06/11/2024 Immunization Status: P neumovacc P revnar 20-07/03/2023. I nfluenza 1 . B oostrix U TD- 11/12/2022. Screenings/Counseling: F ALL RISK SCREENING Fall Risk Assessment: T wo or more falls without injury in the past year Are you afraid of falling? N o T OBACCO ACTION PLAN Patient counselled on the dangers of tobacco use and urged to quit. 0 06/29/2024 Former Education on smoking effects provided?06/29/2024 Former B NH ACTION PLAN Above Normal BMI Follow-up D ietary management education, guidance, and counseling R SV-06/29/2023. * Follow Up: 1 Year (Reason: COPD) * * Sign off status: Completed Visit Status: C HK (Check Out) true * Provider: Agus Bryson DO Date: 0 06/29/2024 Generated for Kaci marshall/Preethi/Mauriitting on: 0 05/05/2025 09:19 AM EDT History and Physical Notes * HPI (History of Present Illness) Category Sub-Category Detail Notes Category Not es General Patient present s for a follow-up for COPD. Patient states his breathing is unchanged since his last visit. Patient is using Trelegy daily with benefit. Patient reports rare albuterol use. Patient denies any hospitalizations or ER visits since his last visit. Examination Category Sub-Category Detail Notes Category Not es Exam GENERAL APPEARANCE: Appears stated age Skin Normal Mouth [place] and moist. No c andidiasis Trachea Midline Chest Normal Respiratory Normal Movements, Ef fort Normal Auscultation Diminished but clear breath sounds Cardiac Regular rate and rhy thm Gastrointestinal Normal Vascular No edema Musculoskeletal Normal posture. Usin g a cane to ambulate Neurological Focal, intact Psychiatric Alert and oriented x 3 Mentation/Cognition Normal Oropharynx Mallampati Class I
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
--- OUTSIDE RECORDS SUMMARY | 2025-04-21 05:31 | XMS_ITS | Continuity of Care Document ---
Author Organization [facility] Address [address] [place] [address] Phone Care Team Providers Care Apn Name Role Phone Aliza Piña APRN Primary Care Provider Aliza Piña APRN Attending Provider Care Teams Patient Care Team Team Status: Active Member Role Status Dates Aliza Piña APRN WAREHOUSE PRICING AND INVENTORY CLERK-C Primary Care Provider Active Visit Care Team Team Status: Inactive Member Role Status Dates Aliza Piña APRN WAREHOUSE PRICING AND INVENTORY CLERK-C Primary Care Provider Active Start: April 12, 2025 End: April 12, 2025 Aliza Piña APRN WAREHOUSE PRICING AND INVENTORY CLERK-C Attending Provider Act gabriella Start: April 12, 2025 End: April 12, 2025 Visit Care Team Team Status: Inactive Member Role Status Dates Aliza Piña APRN WAREHOUSE PRICING AND INVENTORY CLERK-C Primary Care Provider Active Start: April 18, 2025 End: April 18, 2025 Aliza Piña APRN WAREHOUSE PRICING AND INVENTORY CLERK-C Attending Provider Act gabriella Start: April 18, 2025 End: April 18, 2025 Patient Care Team Team Status: Inactive Member Role Status Dates Aliza Piña APRN WAREHOUSE PRICING AND INVENTORY CLERK-C Primary Care Provider Active Start: April 21, 2025 End: April 21, 2025 Aliza Piña APRN WAREHOUSE PRICING AND INVENTORY CLERK-C Attending Provider Act gabriella Start: April 21, 2025 End: April 21, 2025 Chief Complaint and Reason for Visit Chief Complaint Admit Date Trouble Sleeping April 12, 2025 8:50a m follow up on sleep concerns April 18 11:22am UA:Trouble Urinating April 21, 2025 8:5 4am Reason for Visit Admit Date PTSD (post-traumatic stress disorder) Ju ly 2024 8:50am Sleep disturbance April 12, 2025 8:50a m PTSD (post-traumatic stress disorder) Ju ly 2024 11:22am Sleep disturbance April 18, 2025 11:2 2am Difficulty initiating urinary stream Edson y 2024 8:54am Intertrigo April 21, 2025 8:54 am Reason for Referral Referring Provider Name Referring Provider Address Referring Provider Phone Referral Date Requested Appointment Date Referral Reason Aliza Piña [address] [facility] [address] Work Phone: April 21, 2025 R39.198 - Other difficulties with micturition April 21, 2025 R39. 198 - Other difficulties with micturition Allergies, Adverse Reactions, Alerts Allergen Type Severity Reaction Last Updated Verified Status penicillin G Allergy Unknown Rash April 21 9:14am Yes Active Sulfa (Sulfonamide Antibiotics) Allergy Unknown Rash April 21, 2025 9:14am Yes Active Social History Smoking Status Status Start Date End Date Date of Observa tion Ex-smoker (finding) April 8:51am Observation Status Observation Response Date of Response Legal Sex Male (finding) Sex Assigned At Male May Family History Relationship Condition Age at Onset Recorded Date/T lisa spouse Dementia Unknown father Malignant neoplasm of stomach Unknown mother Malignant neoplasm Unknown sister Malignant neoplasm of bone Unknown brother Malignant neoplasm of pancreas Unknown son Non-Hodgkin's lymphoma Unknown Problems Active Problems Medical Problem Onset Date Status Comments Difficulty initiating urinary stream Unknown Acti ve PTSD (post-traumatic stress disorder) Unknown Act gabriella Screening for prostate cancer Unknown Active Onychomycosis Unknown Active Sleep disturbance Unknown Active Fatty liver Unknown Active Anemia Unknown Active Eczema Unknown Active Rash Unknown Active Hyperlipidemia Unknown Active Detached retina Unknown Active BL Intertrigo Unknown Active COPD (chronic obstructive pulmonary disease) Unknown Active GERD (gastroesophageal reflux disease) Unknown Ac tive Medications Medication Status Dose Units Route Directions Qty Days St art Date Stop Date End Date Instructions Adherence Triamcinolo ne Acetonide 0.1 % cream Discont inued 1 APPLIC TOPICA L Twice daily 2024 8:55am February 28, 2025 1:31p m Omeprazole 40 mg capsule,del ayed release(DR/ EC) Active 40 MG PO Daily 90 90 January 23, 2025 7:45am Complies with drug therapy Triamcinolo ne Acetonide 0.1 % cream Active 1 APPLIC TOPICA L Twice daily 80 February 28, 2025 1:31pm Complies with drug therapy Zolpidem (Ambien) 5 mg tablet Active 5 MG PO Daily at bedtime as needed for sleep April 19, 2025 12:00a m Complies with drug therapy Nystatin 100,000 unit/gram cream Active 1 APPLIC TOPICA L Twice daily April 21, 2025 12:00a m Complies with drug therapy Omeprazole 40 mg capsule,del ayed release(DR/ EC) Discont inued 40 MG PO Daily 2023 12:00a m [facility] 2023 11:22 am Prednisolon e Acetate 1 % drops,suspe nsion Active DROPS OPHTHA LMIC 2023 12:00a m Complies with drug therapy Dorzolamide -Timolol 22.3-6.8 mg/mL drops Active 1 DROPS EYE-DENNIS TH Twice daily 2023 12:00a m Complies with drug therapy Vitamins A,C,E-Zinc- Copper 2,148 mcg-113 mg-45 mg-17.4mg tablet Active 1 TAB PO Once 2023 12:00a m administer with AM and PM meals Complies with drug therapy Cholecalcif erica (Vitamin D3) 25 mcg (1,000 unit) capsule Active 25 MCG PO Daily 2023 12:00a m Complies with drug therapy Vit C-Bioflav-H traci-Rutin-H b196 (Bioflex) 500-50-25-4 0 mg tablet Active TAB PO 2023 12:00a m Complies with drug therapy Omeprazole 40 mg capsule,del ayed release(DR/ EC) Discont inued 40 MG PO Daily 90 2023 11:12a m January 23, 2025 7:45a m Triamcinolo ne Acetonide 0.1 % cream Discont inued 1 APPLIC TOPICA L Twice daily 80 2023 12:00a m Janjulianna 2024 8:56a m Ciclopirox 8 % solution Active 1 APPLIC TOPICA L Daily at bedtime 6.6 28 2023 12:00a m Complies with drug therapy Fluticasone -Umeclidin- Vilanter (Trelegy Ellipta) 100-62.5-25 mcg blister with device Active 1 INH INHALA TION Daily 2023 12:00a m Complies with drug therapy Albuterol Sulfate 90 mcg/actuati on HFA aerosol inhaler Active 1 INH INHALA TION Every 6 hours 2023 12:00a m Complies with drug therapy Vital Signs Vital Reading Result Reference Range Collection Date/Time Height 74 [in_i] April 12, 2025 8:54am Weight 88.90 kg April 12, 2025 8:54am Body Temperature 98.2 [degF] 97.6-99.0 April 12, 025 8:54am Heart Rate 81 /min 60-100 April 12, 2025 8:54am Oxygen saturation by Pulse oximetry 94 % 95-100 April 12, 2025 8:54a m BP Systolic 126 mm[Hg] 100-140 April 12, 2025 8:54am BP Diastolic 68 mm[Hg] 60-100 April 12, 2025 8:54am BMI (Body Mass Index) 25.1 kg/m2 April 122024 8:54am Height 74 [in_i] April 18, 2025 11:24am Weight 88.90 kg April 18, 2025 11:24am Body Temperature 99.0 [degF] 97.6-99.0 April 18, 2025 11:24am Heart Rate 88 /min 60-100 April 18, 2025 11:24am Oxygen saturation by Pulse oximetry 98 % 95-100 April 18, 2025 11:2 4am BMI (Body Mass Index) 25.1 kg/m2 April 042024 11:24am Advance Directives Advance Directive Response Recorded Date/ Time Advance Directives No April 21 8:51am Insurance Providers Guarantor Felipe Jung V Address [address] [place] [address] Contact Info. Home Phone: Payer Policy Id Subscriber's Name Subscriber Id Effectiv e Date Expiration Date [place] [employer]/[place] [id number] Felipe Jung V [id number] Medicare [id number] Felipe Jung V [id number] Encounters Encounter Location(s) Arrival/Admit Date Discharge/Depart Date Provider(s) Departed Physician/Prov ider Office Visit -[facility] April 12, 2025 8:50am April 12, 2025 9:42am Aliza Piña APRN CNP Departed Physician/Prov ider Office Visit -[facility] April 18, 2025 11:22am April 18, 2025 12:10pm Aliza Piña APRN CNP Departed Physician/Prov ider Office Visit -[facility] April 21, 2025 8:54am April 21, 2025 9:30am Aliza Piña APRN CNP Recent Diagnosis Onset Date Admit Date PTSD (post-traumatic stress disorder) Unknown April 12, 2025 8:50am Sleep disturbance Unknown April 12, 2025 8:50am PTSD (post-traumatic stress disorder) Unknown April 18, 2025 11:22am Sleep disturbance Unknown April 18 11:22am Difficulty initiating urinary stream Unknown April 21, 2025 8:54am Intertrigo Unknown April 21, 2025 8:54am Assessments Diagnosis Onset Date Resolution Status Admit Date PTSD (post-traumatic stress disorder) acute April 12, 2025 8 :50am Sleep disturbance acute April 8:50am PTSD (post-traumatic stress disorder) acute April 18, 2025 11:22am Sleep disturbance acute April 182024 11:22am Difficulty initiating urinar y stream acute April 21, 2025 8:54am Intertrigo acute April 21 8:54am Plan of Treatment Author Aliza Pñia [facility] Authored April 12, 2025 3:15p m Discussed with pt options re garding treatment and due to the increased pressure of the eye it is not recommend from most the treatments for sleep due to the anticholinergic side effects. Will obtain records from him child care specialist to confirm diagnosis. Discussed for him to trial on the Melatonin 10mg and will see him back in 4 weeks. Offered referral to sleep medicine and he would like to wait on this. Author Aliza Piña [facility] Authored April 19, 2025 2:42 pm Discussed case with Abhijit jeffers M.D. office regarding eye pressure and it is ok to proceed with medication for sleep. Discussed will trail on Ambein 5mg for sleep. Pt is agreeable and would like to proceed. OARRS checked, and script sent. Pt has an appt for wellness on May 06. Call if no changes or worsening. Pt verbalizes understanding and agrees to plan of care. [facility] [place] Future Tests Future scheduled test information is unavailable Pending Tests Pending diagnostic test information is unavailable Future Visits Future appointment information is unavailable Referrals to Other Providers Reason for Referral Referral Start Date Provider Provider Contact Information Provider Address R39.986 - Other difficulties with micturition April 21, 2025 David Fischer MD Email: [email or web address] Phone: [address] [place] [facility] [address] Future Procedures Future procedure information is unavailable Future Medications Future medication information is unavailable Patient Instructions Patient instructions are unavailable Hospital Discharge Instructions Ambulatory Orders* Referral to Urology Time Frame: 04/21/25, Location: None Selected
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
--- OUTSIDE RECORDS SUMMARY | 2025-05-05 09:20 | XMS_ITS | Patient Health Record ---
Author Organization [facility] Address [address] [place] [address] Care Team Providers Care Service Parts Coordinator Name Role Phone GUILLAUME ACEVEDO Primary Care Provider [phone] NANCY PAREDES Unavailable [phone] Allergies Allergen (clinical drug ingredient) Drug/Non Drug Allergy documented on EMR Reaction Allergy Type Onset Date Status Substance with sulfonamide structure and antibacterial mechanism of action (substance) Sulfa Antibiotics Unknown Drug Allergy Active Penicillin Unknown Drug Allergy Active Reason For Referral No Information Medications Medication SIG (Take, Route, Frequency, Duration) Notes Start Date End Date Status Allergy Relief (Loratadine) 10 MG 1 tab(s) orally once a day for 30 days 11/09/2018 Not-Taking Clotrimazole-Betame thasone 1-0.05 % 1 burton applied topically 2 times a day for 14 Not-Taking Ketorolac Tromethamine 0.5 % 1 gtt in left eye 2 times a day Active Esomeprazole Magnesium 20 MG 1 cap(s) orally once a day for 30 day(s) Active Sertraline HCl 100 MG 1/2 tab(s) orally once a day Not-Taking PreserVision AREDS 2 - 1 tab(s) chewed 2 times a day Active Metoprolol Tartrate 25 MG 1/2 tab(s) orally 2 times a day Not-Taking OSTEO BI-FLEX TRIPLE STRENGTH *Please review for potential replacement for e-prescription and drug interaction check* Active Melatonin 3 MG 1 tab(s) orally once (at bedtime) Not-Taking Tylenol 8 Hour Arthritis Pain 650 MG 2 tab(s) orally every 8 hours for 3 day(s) Active OLOPATADINE NASAL 665 MCG/INH 2 SPRAY(S) INTRANASALLY 2 TIMES A DAY *Please review for potential replacement for e-prescription and drug interaction check* Not-Taking prednisoLONE Acetate 1 % 1 gtt in each affected eye 4 times a day for 2 day(s) Not-Taking Gabapentin 300 MG 1 cap(s) orally 2 times a day Not-Taking Trelegy Ellipta 100-62.5-25 MCG/ACT 1 Inhalation once dailiy for 30 days Active Acetaminophen 325 MG 2 tab(s) orally every 4 hours Not-Taking Albuterol Sulfate HFA 108 (90 Base) MCG/ACT 2 puff(s) inhaled 4 times a day Active Atorvastatin Calcium 80 MG 1 tab(s) orally once a day Not-Taking Azithromycin 250 MG 2 tablets on the first day, then 1 tablet daily for 4 days orally on day one, then 1 tab daily thereafter until completed for 5 days 11/09/2018 Not-Taking Diclofenac Sodium 1 % as directed applied topically 4 times a day PRN KNEE PAIN for 30 days Active Tamsulosin HCl 0.4 MG 1 cap(s) orally once a day for 30 day(s) 06/05/2022 Active Multi Vitamin - 1 tab(s) orally once a day for 30 day(s) Active Nystatin 108170 UNIT/GM 1 burton applied topically 2 times a day for 7 days 06/05/2022 Active Glucosamine Chondroitin Triple - 1 tab PO BID for 30 Active traZODone HCl 50 MG 1 tab(s) orally once a day at bedtime Not-Taking Immunizations Vaccine Route Administration Date Status Comme nts Pneumovax 23 Unknown 08/02/2013 Administered Prevnar-13 Unknown 08/07/2014 Administered Tdap Unknown 07/24/2012 Administered Moderna Covid-19 First Dose IM Intramuscular 11/12/2020 Administered Moderna Covid-19 Second Dose IM Intramuscular 12/11/2020 Administered Moderna Covid-19 Booster Dose IM Intramuscular 08/27/2021 Administered Left #[id number] Per [facility] Moderna Covid-19 Booster Dose IM Intramuscular 07/24/2022 Administered Lot #[id number] Per [facility] Fluzone HIGH DOSE 0.5ml IM Intramuscular 07/25/2022 Administered Lot #[id number] Per [facility] Immunization Record Social History Tobacco Use: Social History Observation Description Date Details (start date - stop date) Former Smoker NA - NA Tobacco Question Answer Notes Are you a former smoker If former smoker how long has it been since yo u last smoked? > 10 years Sexual History Question Answer Notes Had sex in the past 12 months (vaginal, oral or anal) No Prevention Strategies discussed: Other Have you ever had an STD? No Alcohol Screening Question Answer Notes Did you have a drink containing alcohol in the p ast year? 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) Active confirmed Problem 58147379 Elevated cholesterol (E78.00) Active confirmed Problem 0083142705181 Benign prostatic hyperplasia with lower urinary tract symptoms (N40.1) Active confirmed Problem 03668981 Macular edema (H35.81) Active confirmed Plan Of Treatment No Information Insurance Providers Payer Name Payer Address Payer Phone Subscriber Number Group Number Insured Name Patient Relationship to Insured Coverage Start Date Coverage End Date Medicare [place] [employer] [facility] [address] [place] [phone] [id number] Felipe Jung Self - patient is the insured 7 [facility] [address] [address] [place] [address] [id number] Felipe Jung Self - patient is the insured 7 Medications Administered Medication Instructions Date of Administration Dosage Notes Dexamethasone 10mg/ml 09/19/2021 10 MG Medical (General) History Surgical History Surgery Date(Month/Year) HERNIA REPAIR x3 03/2018 Detached retina-right Detached retina-left Hospitalization History Reason Date(Month/Year) above surgies
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
[2025-05-05 09:46] LABS: Hematocrit 44.7 % (42.0-54.0); Hemoglobin 15.3 g/dL (14.0-18.0); Immature Granulocytes Abs Auto 0.03 10^3/uL (0.00-0.03); Immature Granulocytes Pct Auto 0.5 % (0.0-0.5); Lymphocytes Absolute Auto 1.8 10^3/uL (1.2-3.8); Mean Corpuscular HGB Conc 34.2 g/dL (29.9-35.2); Mean Corpuscular Hemoglobin 32.8 pg (25.9-34.0); Mean Corpuscular Volume 95.9 fL (80.0-94.0); Platelet Count 279 10^3/uL (150-450); Red Blood Count 4.66 10^6/uL (4.70-6.10); White Blood Count 6.3 10^3/uL (4.0-11.0)
[2025-05-05 10:04] LABS: Alanine Aminotransferase 25 U/L (16-63); Albumin Globulin Ratio 1.2; Albumin Level 4.1 g/dL (3.4-5.0); Alkaline Phosphatase 68 U/L (46-116); Anion Gap 13.2; Aspartate Amino Transferase 17 U/L (15-37); Blood Urea Nitrogen 13.0 mg/dL (7.0-18.0); Calcium 9.5 mg/dL (8.5-10.1); Carbon Dioxide 29.3 mmol/L (21.0-32.0); Chloride 104 mmol/L (98-107); Cholesterol 201 mg/dL (<=200); Estimated GFR (African America >60 (>=60 mL/min/1.73m^2); Estimated GFR (Non-African Ame >60 (>=60 mL/min/1.73m^2); Globulin 3.4 g/dL; Glucose 99 mg/dL (74-106); HDL Cholesterol 47 mg/dL (40-60); Potassium 3.5 mmol/L (3.5-5.1); Sodium 143 mmol/L (136-145); Total Protein 7.5 g/dL (6.4-8.2); Triglycerides 176 mg/dL (<=150); VLDL CHOLESTEROL 35.2 mg/dL
== END 2025-05-05 09:14 | disposition home or self-care (01) ==
LOC: LAB 09:17
PROVIDERS: PCP Nurse Practitioner Family; Visit Provider Nurse Practitioner Family
DX: K76.0 Fatty (change of) liver, not elsewhere classified (principal); E78.5 Hyperlipidemia, unspecified; D64.9 Anemia, unspecified; Z12.5 Encounter for screening for malignant neoplasm of prostate
CPT/HCPCS: 36415; 80053; 80061; 85025; G0103